=== PATIENT | male | born 1940 | race Caucasian/White ===

== ENCOUNTER → 2016-12-13 | Outpatient (CLI) | payer OTHER, MEDICARE | LOC: BHFA 11:30 | PROVIDERS: ATTEND Internal Medicine Cardiovascular Disease | DX: I42.9 Cardiomyopathy, unspecified (principal) ==

== ENCOUNTER 2017-02-05 07:28 | Day surgery (SDC) | payer OTHER, MEDICARE ==
[2017-02-05] MEDS ORDERED: MIDAZOLAM 2 MG/2 ML VIAL IVP ONE (07:34)
[2017-02-05] MEDS ORDERED: NS 1,000 ML IV ONE (07:34)
[2017-02-05] MEDS ORDERED: fentaNYL 100 MCG/2 ML INJ IVP ONE (07:34)
[2017-02-05] MEDS ORDERED: BENZOCAINE UNIT DOSE SPRAY HURRICAINE MM ONE (07:34)
[2017-02-05] MEDS ORDERED: PROPOFOL 200 MG/20 ML VIAL ONE ×2 (10:42→10:59)
== END 2017-02-05 12:40 | disposition home or self-care (01) ==
LOC: FCATH 07:28
PROVIDERS: ATTEND Internal Medicine Cardiovascular Disease
PROC: B245ZZ4 Ultrasonography of Left Heart, Transesophageal (ICD-10-PCS; principal; 2017-02-05)
DX: I34.0 Nonrheumatic mitral (valve) insufficiency (principal); I50.9 Heart failure, unspecified
CPT/HCPCS: J2704

== ENCOUNTER → 2017-02-08 | Outpatient (CLI) | payer OTHER, MEDICARE | LOC: BHFA 09:00 | PROVIDERS: ATTEND Internal Medicine Cardiovascular Disease | DX: I48.91 Unspecified atrial fibrillation (principal); J98.4 Other disorders of lung ==

== ENCOUNTER → 2017-02-26 | Outpatient (CLI) | payer OTHER, MEDICARE | LOC: BHFA 08:45 | PROVIDERS: ATTEND Internal Medicine Cardiovascular Disease | DX: I34.0 Nonrheumatic mitral (valve) insufficiency (principal); I50.22 Chronic systolic (congestive) heart failure; E66.9 Obesity, unspecified; R06.02 Shortness of breath ==

== ENCOUNTER 2017-04-02 16:40 | Inpatient (IN) | payer OTHER, MEDICARE ==
[2017-04-02] MEDS ORDERED: NS 1,000 ML IV ONE (16:56)
--- NOTE | 2017-04-02 16:57 | EDPHY ---
H & P Stated Complaint: Sent to ED for abnl chemistries HPI/ROS: HPI CHIEF COMPLAINT: Abnormal labs HISTORY OF PRESENT ILLNESS: This patient very pleasant 76-year-old male significant past medical history for nonischemic cardiomyopathy, last ejection fraction 30%, AICD, who presents emergency room after he had lab work that showed an abnormal chemistry and hyperkalemia to 6. Also concern for renal failure. He is referred to the emergency room. Dr. Tian did specifically call about this patient. He also sees Dr. David Avendaño. Patient tells me over the last 3 weeks he has had no medication changes he was started on lisinopril as well as spironolactone as well as he thinks Turosemide. Patient states he has no chest pain or shortness of breath he states that his peripheral edema has improved. He does tell me over the last 3 weeks he has noticed these medications that he gets lightheaded very easily and sometimes gets into a fog. Currently upon arrival to the emergency room he is hemodynamically stable had routine blood work by Dr. Avendaño today and was referred to the emergency room due to hyperkalemia, elevated BUN and creatinine. Patient denies any complaints at this time. He does also tell me that he took he thinks KayExelate prior to arrival. Past Medical History: Nonischemic cardiomyopathy, AICD, reduced ejection fraction, history VFib V-tach Past Surgical History: AICD Social History: He practices law, denies daily use of drugs alcohol tobacco products Family History: Noncontributory ROS REVIEW OF SYSTEMS: A comprehensive 10 point review of systems is otherwise negative aside from elements mentioned in the history of present illness. Exam Constitutional appears well triage nursing summary reviewed, vital signs reviewed, awake/alert. Eyes normal conjunctivae and sclera, EOMI, PERRLA. HENT normal inspection, atraumatic, moist mucus membranes, no epistaxis, neck supple/ no meningismus, no raccoon eyes. Respiratory clear to auscultation bilaterally, normal breath sounds, no respiratory distress, no wheezing. Cardiovascular rate normal, regular rhythm, no murmur, no edema, distal pulses normal. Gastrointestinal soft, non-tender, no rebound, no guarding, normal bowel sounds, no distension, no pulsatile mass. Genitourinary no CVA tenderness. Musculoskeletal no midline vertebral tenderness, full range of motion, no calf swelling, no tenderness of extremities, no meningismus, good pulses, neurovascularly intact. Skin pink, warm, & dry, no rash, skin atraumatic. Neurologic awake, alert and oriented x 3, AAOx3, moves all 4 extremities equally, motor intact, sensory intact, CN II-XII intact, normal cerebellar, normal vision, normal speech. Psychiatric normal mood/affect. Heme/Lymph/Immune no lymphadenopathy. Differential Diagnosis: includes but is not limited to in a particular order renal failure, electrolyte disturbance, hyperkalemia, life-threatening hyperkalemia, cardiac arrhythmia, renal failure from lisinopril and diuretics Medical Decision Making: Plan for this patient full monitoring specialist, EKG due to hyperkalemia, repeat electrolytes, hydrate with IV fluids 1 L normal saline, and admit to the hospital. Will consult Cardiology. Would recommend holding lisinopril and diuretics at this time. Re-evaluation: EKG interpretation by me on record in [employer] system. Impression time of EKG 1724, this is AV dual paced rhythm EKG. I do not appreciate any abnormal acute ischemic changes. 183: Blood work reviewed. K down 5.5. BUN and creatinine noted be elevated. Patient hemodynamically stable agrees for admission. I will notify cardiology of his admission. Hospitalist service accepts. Dr. Martinez Most likely cause of acute kidney injury is lisinopril, potassium-sparing diuretic. Patient given 1 L fluid here in the emergency room.. Source: Patient - Personal History Current Tetanus Diphtheria and Acellular Pertussis (TDAP): Yes - Medical/Surgical History Hx Asthma: No Hx Chronic Respiratory Disease: Yes Hx Diabetes: No Hx Cardiac Disease: Yes Hx Renal Disease: No Hx Cirrhosis: No Hx Alcoholism: No Hx HIV/AIDS: No Hx Splenectomy or Spleen Trauma: No Other PMH: A fib. non ischemic cardiomyopathy. V-Tach. Bi-pacer. DVT. 2x PE's. - Social History Smoking Status: Former smoker Constitutional: Initial Vital Signs Temperature (C) 36.7 C 04/02/17 16:45 Heart Rate 78 04/02/17 16:45 Respiratory Rate 18 04/02/17 16:45 Blood Pressure 106/63 04/02/17 16:45 O2 Sat (%) 98 04/02/17 16:45 O2 Delivery Mode Room Air Allergies/Adverse Reactions: No Known Allergies Allergy (Unverified 10/25/09 16:20) Home Medications: Medication Instructions Recorded Amiodarone HCl [Pacerone (*)] 200 mg PO DAILY 12/29/14 Aspirin [Aspirin 81mg (*)] 81 mg PO DAILY 12/29/14 Atorvastatin Calcium [Lipitor 80 80 mg PO DAILY 12/29/14 mg] Carvedilol [Coreg] 12.5 mg PO BIDMEAL 12/29/14 Warfarin Sodium [Coumadin 2.5MG 1.25 mg PO MOFR@16 12/29/14 (*)] Warfarin Sodium [Coumadin 2.5MG 2.5 mg PO DAILY 12/29/14 (*)] 2 New Diuretics X 2 Weeks 04/02/17 Lisinopril [Zestril 20 mg (*)] 20 mg PO 04/02/17 Medical Decision Making - Data Points Laboratory Results: Laboratory Results 04/02/17 17:15 04/02/17 17:15 04/02/17 04/02/17 17:15 17:15 WBC 7.66 10^3/uL 10^3/uL (3.80-9.50) RBC 4.32 10^6/uL L 10^6/uL (4.40-6.38) Hgb 14.9 g/dL g/dL (13.7-17.5) Hct 43.5 % % (40.0-51.0) MCV 100.7 fL H fL (81.5-99.8) MCH 34.5 pg H pg (27.9-34.1) MCHC 34.3 g/dL g/dL (32.4-36.7) RDW 12.4 % % (11.5-15.2) Plt Count 180 10^3/uL 10^3/uL (150-400) MPV 10.2 fL fL (8.7-11.7) Neut % (Auto) 66.3 % % (39.3-74.2) Lymph % (Auto) 19.5 % % (15.0-45.0) [place] % (Auto) 11.0 % % (4.5-13.0) Eos % (Auto) 2.3 % % (0.6-7.6) Baso % (Auto) 0.4 % % (0.3-1.7) Nucleat RBC Rel Count 0.0 % % (0.0-0.2) Absolute Neuts (auto) 5.08 10^3/uL 10^3/uL (1.70-6.50) Absolute Lymphs (auto) 1.49 10^3/uL 10^3/uL (1.00-3.00) Absolute Monos (auto) 0.84 10^3/uL H 10^3/uL (0.30-0.80) Absolute Eos (auto) 0.18 10^3/uL 10^3/uL (0.03-0.40) Absolute Basos (auto) 0.03 10^3/uL 10^3/uL (0.02-0.10) Absolute Nucleated RBC 0.00 10^3/uL 10^3/uL (0-0.01) Immature Gran % 0.5 % % (0.0-1.1) Immature Gran # 0.04 10^3/uL 10^3/uL (0.00-0.10) Sodium 135 mEq/L mEq/L (134-144) Potassium 5.5 mEq/L H mEq/L (3.5-5.2) Chloride 101 mEq/L mEq/L (97-110) Carbon Dioxide 21 mEq/l L mEq/l (22-31) Anion Gap 13 mEq/L mEq/L (8-16) BUN 74 mg/dL H mg/dL (7-23) Creatinine 3.0 mg/dL H mg/dL (0.7-1.3) Estimated GFR 21 Glucose 129 mg/dL H mg/dL (70-100) Calcium 10.3 mg/dL mg/dL (8.5-10.4) Magnesium 2.2 mg/dL mg/dL (1.6-2.3) Total Bilirubin 1.4 mg/dL mg/dL (0.1-1.4) Conjugated Bilirubin 0.6 mg/dL H mg/dL (0.0-0.5) Unconjugated Bilirubin 0.8 mg/dL mg/dL (0.0-1.1) AST 39 IU/L IU/L (17-59) ALT 48 IU/L IU/L (21-72) Alkaline Phosphatase 88 IU/L IU/L (38-126) Creatine Kinase 49 IU/L IU/L (0-224) CK-MB (CK-2) Fraction Pending Troponin I Pending NT-Pro-B Natriuret Pep Pending Total Protein 7.3 g/dL g/dL (6.3-8.2) Albumin 4.5 g/dL g/dL (3.5-5.0) Medications Given: Discontinued Medications Sodium Chloride (Ns) 1,000 mls @ 0 mls/hr IV ONCE ONE PRN Reason: Wide Open Stop: 04/02/17 16:57 Last Admin: 04/02/17 17:30 Dose: 1,000 mls Departure - Departure Disposition: [facility] Inpatient Acute Clinical Impression: Hyperkalemia, KULWANT (acute kidney injury) Condition: Fair
[2017-04-02 17:27] LABS: % IMMATURE GRANULYOCYTES 0.5 % (0.0-1.1); ABSOLUTE IMMATURE GRANULOCYTES 0.04 10^3/uL (0.00-0.10); ADD DIFF? NO; ADD MORPH? NO; ADD SCAN? NO; ATYPICAL LYMPHOCYTE FLAG 10 (0-99); FRAGMENT RBC FLAG 0 (0-99); HEMATOCRIT 43.5 % (40.0-51.0); HEMOGLOBIN 14.9 g/dL (13.7-17.5); LEFT SHIFT FLG 0 (0-99); LIPEMIA HEMOLYSIS FLAG 90 (0-99); MEAN CELL HEMOGLOBIN 34.5 pg (27.9-34.1); MEAN CELL HEMOGLOBIN CONCENTR. 34.3 g/dL (32.4-36.7); MEAN CELL VOLUME 100.7 fL (81.5-99.8); MEAN PLATELET VOLUME 10.2 fL (8.7-11.7); PLATELET CLUMPS FLAG 0 (0-99); PLATELET COUNT 180 10^3/uL (150-400); RED BLOOD CELL COUNT 4.32 10^6/uL (4.40-6.38); RED CELL DISTRIBUTION WIDTH 12.4 % (11.5-15.2)
--- NOTE | 2017-04-02 17:27 | CPEKG ---
Heart Rate: 71 RR Interval: 845 P-R Interval: 124 QRSD Interval: 154 QT Interval: 448 QTC Interval: 487 P [place]: -18 QRS [place]: -80 T Wave [place]: 83 EKG Severity - ABNORMAL ECG - EKG Impression: A-V DUAL-PACED RHYTHM WITH SOME INHIBITION Electronically Signed By: Tony Juarez 02-Apr-2017 23:54:37
[2017-04-02 18:08] LABS: ALANINE AMINOTRANSFERASE 48 IU/L (21-72); ALBUMIN 4.5 g/dL (3.5-5.0); ALKALINE PHOSPHATASE 88 IU/L (38-126); ANION GAP 13 mEq/L (8-16); ASPARTATE AMINOTRANSFERASE 39 IU/L (17-59); BILIRUBIN,TOTAL 1.4 mg/dL (0.1-1.4); BILIRUBIN-CONJUGATED 0.6 mg/dL (0.0-0.5); BILIRUBIN-UNCONJUGATED 0.8 mg/dL (0.0-1.1); CALCIUM 10.3 mg/dL (8.5-10.4); CARBON DIOXIDE 21 mEq/l (22-31); CHLORIDE 101 mEq/L (97-110); GLOMERULAR FILTRATION RATE 21; GLUCOSE 129 mg/dL (70-100); MAGNESIUM 2.2 mg/dL (1.6-2.3); POTASSIUM 5.5 mEq/L (3.5-5.2); SODIUM 135 mEq/L (134-144); TOTAL PROTEIN 7.3 g/dL (6.3-8.2)
[2017-04-02 18:49] LABS: CREATINE KINASE-MB FRACTION 2.11 ng/mL (0-3.19)
[2017-04-02] MEDS ORDERED: ACETAMINOPHEN 325 MG TAB PO PRN (19:48)
[2017-04-02] MEDS ORDERED: ONDANSETRON DISINTEGRATING 4 MG TAB PO PRN (19:48)
[2017-04-02] MEDS ORDERED: ONDANSETRON 4 MG/2 ML VIAL IVP PRN (19:48)
[2017-04-02] MEDS ORDERED: NS 1,000 ML IV SCH (20:00)
--- NOTE | 2017-04-02 20:27 | GHP ---
[f rep st] HISTORY AND PHYSICAL DATE OF ADMISSION: 04/02/2017 CHIEF COMPLAINT: Abnormal labs. HISTORY OF PRESENT ILLNESS: This is a 76-year-old male with a history of a nonischemic cardiomyopat hy, atrial fibrillation, and ventricular tachycardia, status post AICD and pacemaker placement. Awilda arently early this year, discovered that he was having mitral regurgitation on routine echo. This w as further evaluated by RONAN. He then went to the [facility] where they further evaluate that. At that time then he was started on lisinopril and then after he came back from [facility], he was sta rted on torsemide and spironolactone. He says since then he has been feeling lightheaded. He did h ave some mild edema prior to that and that has now resolved. He has also had a little bit of neck p ain. No chest pain. No heart palpitations. He was not feeling well with fatigue and dizziness, an d labs were drawn today which showed a potassium of 6.5 and creatinine of 2.8. He was sent to the e mergency department. The patient also states he received 30 g of Kayexalate that was prescribed by the staff midwife's office prior to coming to the emergency department. REVIEW OF SYSTEMS: A 10-point review of systems was obtained and other than stated, was negative. He denies any PND, orthopnea, and only mild edema prior to medication changes. PAST MEDICAL HISTORY: 1. Nonischemic cardiomyopathy. 2. History of pacemaker and AICD placement. 3. Mitral regurgitation. 4. History of pulmonary embolisms x2. MEDICATIONS: Include amiodarone, aspirin, atorvastatin, Coreg, lisinopril, Aldactone, Demadex, and warfarin. His last INR was 1.6. SOCIAL HISTORY: No smoking. 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 His son is a staff midwife in [facility] [employer]. FAMILY HISTORY: Reviewed and noncontributory. PHYSICAL EXAMINATION: VITAL SIGNS: Afebrile, blood pressure is 106/63, heart rate is 70, oxygen sa turation is 98% on room air. GENERAL: The patient is well-developed, no apparent distress. HEENT: Nonicteric sclerae. Extraocular muscles intact. Moist mucous membranes. NECK: Supple. No thyr omegaly. LUNGS: Good effort. Clear to auscultation bilaterally. CARDIOVASCULAR: Regular rate an d rhythm. No murmurs or gallops. ABDOMEN: Positive bowel sounds. Soft, nontender, nondistended. No hepatosplenomegaly. EXTREMITIES: No clubbing, cyanosis, or edema. There is a little bit of ch ronic venous stasis changes. NEUROLOGIC: Alert and oriented x3. Moving all 4 extremities equally. PSYCHIATRIC: Normal affect. LABORATORY DATA: Potassium was 5.5, and creatinine 2.0. BNP 649. CBC is essentially normal. EKG personally reviewed and interpreted shows paced rhythm. ASSESSMENT: This is a 76-year-old male presenting with acute renal failure and hyperkalemia. PLAN: 1. Hyperkalemia. The patient has already received a dose of Kayexalate. His potassium is going do wn. We will continue to monitor this while holding his lisinopril and Aldactone. 2. Acute renal failure, most likely due to a diuretic. Will give IV fluids and monitor for improve ment. If there is no significant improvement and then would get a renal ultrasound. 3. History of mitral regurgitation and nonischemic cardiomyopathy. The patient is not complaining of any dyspnea or CHF symptoms prior to diuretic usage. However, we will be mindful of this while w e hydrate the patient and try not to over hydrate him. 4. History of PE. Will check an INR tonight. If INR is less than 2, will cover with subcutaneous heparin while we wait for his INR to become therapeutic. CODE STATUS: Patient is a full code. ADMISSION: Patient will be admitted under observation status. Case was discussed with the ER physi rosemarie. Old records were reviewed and summarized in the HPI. /[id number]/MODL
[2017-04-02] MEDS: AMIODARONE HCL 200 MG TAB PO SCH (20:57)
[2017-04-03 04:46] LABS: INR 1.46 (0.83-1.16); PROTIME(PATIENT) 17.7 SEC (12.0-15.0)
[2017-04-03 05:15] LABS: ANION GAP 11 mEq/L (8-16); CALCIUM 9.2 mg/dL (8.5-10.4); CARBON DIOXIDE 23 mEq/l (22-31); CHLORIDE 104 mEq/L (97-110); CREATININE 2.6 mg/dL (0.7-1.3); GLOMERULAR FILTRATION RATE 24; GLUCOSE 86 mg/dL (70-100); POTASSIUM 4.8 mEq/L (3.5-5.2); SODIUM 138 mEq/L (134-144)
--- NOTE | 2017-04-03 09:04 | PDCARPN ---
Cardiology Progress Note Chief Complaint: Feels less lethargic/dizzy today Assessment/Plan: Assessment: 1. NICMP 2. Mod to severe MR 3. AFIb 4. VT 5. Prerenal azotemia related to over diuresis 6. Hyperkalemia Plan: -Hold diuretics, ACEI for now, will reintroduce slowly as outpatient -Got IV fluids x 12 hrs, will stop now and let him hydrate orally -INR is 1.46, not starting Lovenox due to renal dysfunction. -Ambulate with assist -Monitor renal fn in hospital, anticipate 2 more days in hospital. If doesn't improve, will consult nephrology -K is now normal 04/03/17 09:04 Subjective: Feels better than last night Objective: Vital Signs (8 Hrs) Temp Pulse Resp BP Pulse Ox 04/03/17 07:48 36.3 C 74 18 117/69 95 04/03/17 03:49 36.6 C 80 17 116/64 97 Intake/Output (24 Hrs) 04/01/17 04/02/17 04/03/17 11:59 11:59 11:59 Intake Total 1550 Output Total 850 Balance 700 Intake: Oral (ml) 350 IV Infused (ml) 1200 Ns 1,000 ml @ 100 mls/hr 1200 IV CONT LEXX Rx#: [id number] Output: Urine (ml) 850 Urinal 850 Other: Weight 109.4 kg Intake Quantity Yes Sufficient Number of Stools Urinal 1 Result Diagrams: 04/02/17 17:15 04/03/17 03:16 Telemetry: AF, PVC ICD10 Worksheet Patient Problems: Problems Problem Status Onset Pericardial effusion without cardiac tamponade Acute Pacemaker Acute Atrial fibrillation Acute Hyperkalemia Acute KULWANT (acute kidney injury) Acute
[2017-04-03] MEDS: ASPIRIN 81 MG CHEWABLE TAB PO SCH (09:41)
[2017-04-03] MEDS: CARVEDILOL 25 MG TAB PO SCH (09:41)
[2017-04-03] MEDS: AMIODARONE HCL 200 MG TAB PO SCH ×2 (09:41→20:28)
[2017-04-03] MEDS: ATORVASTATIN CALCIUM 40 MG TAB PO SCH (09:41)
[2017-04-03] MEDS: WARFARIN SODIUM 2.5 MG TAB PO SCH (16:06)
--- NOTE | 2017-04-03 16:14 | HOSPPROG ---
Hospitalist Progress Note Assessment/Plan: # renal failure, pre-renal d/t diuresis - improved, cont PO hydration, recheck tomorrow - hold diuretics, lisinopril - will involve renal if does not continue to improve # NICM - - AICD - cont coreg # hx a/fib, VT - amiodarone, coreg # hyperkalemia - resolved # hx PE - cont warfarin, INR low Subjective: feels well; urinating; slight dizziness Objective: Vital Signs Temp Pulse Resp BP Pulse Ox 36.7 C 73 18 97/64 L 96 04/03/17 15:32 04/03/17 15:32 04/03/17 15:32 04/03/17 15:32 04/03/17 15:32 Laboratory Results 04/03/17 03:16 04/02/17 04/03/17 04/04/17 05:59 05:59 05:59 Intake Total 1550 500 Output Total 850 Balance 700 500 PT 17.7 SEC (12.0-15.0) H 04/03/17 03:16 INR 1.46 (0.83-1.16) H 04/03/17 03:16 chart reviewed ECG personally reviewed - Physical Exam Constitutional: no apparent distress, appears nourished Cardiovascular: regular rate and rhythym, no murmur, rub, or gallop Respiratory: no respiratory distress, no rales or rhonchi, clear to auscultation Gastrointestinal: normoactive bowel sounds, soft, non-tender abdomen, no palpable masses ICD10 Worksheet Patient Problems: Problems Problem Status Onset Pericardial effusion without cardiac tamponade Acute Pacemaker Acute Atrial fibrillation Acute Hyperkalemia Acute KULWANT (acute kidney injury) Acute
[2017-04-03] MEDS: CARVEDILOL 6.25 MG TAB PO SCH (19:13)
[2017-04-04 04:56] LABS: INR 1.45 (0.83-1.16); PROTIME(PATIENT) 17.6 SEC (12.0-15.0)
[2017-04-04 05:02] LABS: ANION GAP 7 mEq/L (8-16); CALCIUM 9.3 mg/dL (8.5-10.4); CARBON DIOXIDE 24 mEq/l (22-31); CHLORIDE 107 mEq/L (97-110); CREATININE 1.6 mg/dL (0.7-1.3); GLOMERULAR FILTRATION RATE 42; GLUCOSE 82 mg/dL (70-100); SODIUM 138 mEq/L (134-144)
[2017-04-04] MEDS: ATORVASTATIN CALCIUM 40 MG TAB PO SCH (08:24)
[2017-04-04] MEDS: CARVEDILOL 25 MG TAB PO SCH (08:24)
[2017-04-04] MEDS: ASPIRIN 81 MG CHEWABLE TAB PO SCH (08:25)
[2017-04-04] MEDS ORDERED: WARFARIN SODIUM 5 MG TAB PO ONE (09:09)
--- NOTE | 2017-04-04 12:17 | PDCARPN ---
Cardiology Progress Note Assessment/Plan: Assessment: 1. NICMP 2. Mod to severe MR 3. AFIb 4. VT 5. Prerenal azotemia related to over diuresis 6. Hyperkalemia Plan: - improvement in renal function and potassium levels. Anticipate discharge home tomorrow. Will keep in the hospital today since his systolic blood pressure is 90 mm of mercury and he is complaining of dizziness. - Given additional dose of warfarin 5 mg today - will gradually reintroduce RAASi (ACEI/ARB) diuretics as outpatient, he will require much lower doses than usual 04/04/17 12:15 Subjective: feels well today, offers no complaints. Reviewed/Discussed With: family Time Spent With Patient: 15 minutes Objective: Vital Signs (8 Hrs) Temp Pulse Resp BP Pulse Ox 04/04/17 08:27 36.4 C 70 16 90/66 L 96 04/04/17 08:24 70 118/57 L 04/04/17 04:21 36.7 C 70 16 118/57 L 95 Intake/Output (24 Hrs) 04/03/17 04/04/17 04/05/17 11:59 11:59 11:59 Intake Total 750 Output Total 250 Balance 500 Intake: Oral (ml) 750 Output: Urine (ml) 250 Urinal 250 Other: Intake Quantity Yes Sufficient Number of Voids Toilet 1 Number of Stools Toilet 1 Result Diagrams: 04/02/17 17:15 04/04/17 03:43 Telemetry: V paced rhythm with frequent PVCs ICD10 Worksheet Patient Problems: Problems Problem Status Onset Pericardial effusion without cardiac tamponade Acute Pacemaker Acute Atrial fibrillation Acute Hyperkalemia Acute KULWANT (acute kidney injury) Acute
--- NOTE | 2017-04-04 12:33 | HOSPPROG ---
Hospitalist Progress Note Assessment/Plan: # renal failure, pre-renal d/t diuresis - continues to improve - hold diuretics, lisinopril # hypotension - improving with increased PO intake # NICM - - AICD - cont coreg # hx a/fib, VT - amiodarone, coreg # hyperkalemia - resolved # hx PE - cont warfarin, INR low - additional warfarin today Subjective: slightly dizzy Objective: Vital Signs Temp Pulse Resp BP Pulse Ox 36.4 C 70 16 90/66 L 96 04/04/17 08:27 04/04/17 08:27 04/04/17 08:27 04/04/17 08:27 04/04/17 08:27 Laboratory Results 04/04/17 03:43 04/03/17 04/04/17 04/05/17 05:59 05:59 05:59 Intake Total 750 Output Total 250 Balance 500 PT 17.6 SEC (12.0-15.0) H 04/04/17 03:43 INR 1.45 (0.83-1.16) H 04/04/17 03:43 - Physical Exam Constitutional: no apparent distress, appears nourished Cardiovascular: regular rate and rhythym, no murmur, rub, or gallop Respiratory: no respiratory distress, no rales or rhonchi, clear to auscultation Gastrointestinal: normoactive bowel sounds, soft, non-tender abdomen, no palpable masses ICD10 Worksheet Patient Problems: Problems Problem Status Onset Pericardial effusion without cardiac tamponade Acute Pacemaker Acute Atrial fibrillation Acute Hyperkalemia Acute KULWANT (acute kidney injury) Acute
[2017-04-04] MEDS: AMIODARONE HCL 200 MG TAB PO SCH ×2 (13:45→20:54)
[2017-04-04] MEDS: WARFARIN SODIUM 2.5 MG TAB PO SCH (17:55)
[2017-04-04] MEDS: CARVEDILOL 6.25 MG TAB PO SCH (17:56)
[2017-04-05 04:08] VITALS: PULSE 71; RESP 15
[2017-04-05 05:26] LABS: INR 1.57 (0.83-1.16); PROTIME(PATIENT) 18.8 SEC (12.0-15.0)
[2017-04-05 05:29] LABS: ANION GAP 7 mEq/L (8-16); CALCIUM 9.8 mg/dL (8.5-10.4); CARBON DIOXIDE 24 mEq/l (22-31); CHLORIDE 106 mEq/L (97-110); CREATININE 1.4 mg/dL (0.7-1.3); GLOMERULAR FILTRATION RATE 50; GLUCOSE 83 mg/dL (70-100); POTASSIUM 5.1 mEq/L (3.5-5.2); SODIUM 137 mEq/L (134-144)
[2017-04-05 07:21] VITALS: BP 105/62; TEMP 97.6; O2SAT 97
[2017-04-05] MEDS: ATORVASTATIN CALCIUM 40 MG TAB PO SCH (09:18)
[2017-04-05] MEDS: CARVEDILOL 25 MG TAB PO SCH (09:18)
[2017-04-05] MEDS: AMIODARONE HCL 200 MG TAB PO SCH (09:18)
[2017-04-05] MEDS: ASPIRIN 81 MG CHEWABLE TAB PO SCH (09:19)
[2017-04-05] MEDS ORDERED: WARFARIN SODIUM 5 MG TAB PO ONE (09:45)
--- NOTE | 2017-04-05 10:20 | GDS ---
[f rep st] DISCHARGE SUMMARY DIAGNOSES: 1. Renal failure, prerenal due to over diuresis. 2. Hypotension. 3. Nonischemic cardiomyopathy. 4. History of atrial fibrillation and ventricular tachycardia. 5. Hyperkalemia. 6. History of a PE with subtherapeutic INR. HOSPITAL COURSE: A 76-year-old man admitted with renal failure. Initial creatinine was 3.0. This is due to over diuresis. He had just been started on Demadex as well as Aldactone. He is also hype rkalemic. Renal failure is significantly improved with slight IV hydration and holding diuretics. His creatinine is 1.4 on discharge. He has been seen in consultation by Dr. Tian as well. He recomm ends restarting Lasix 20 mg daily tomorrow. He will see him once a week for the next 4 weeks. His appointment is for next Sunday. Also, has a history of PE. His INR is 1.46 on admission, it is 1.57 on the day of discharge. We wi ll give him an extra dose of warfarin as he got yesterday then start him on his home warfarin. Dr. Tian will also follow his INR as an outpatient. Nonischemic cardiomyopathy: Continue his carvedilol, hold RIAZ inhibitors for now. Lasix as above. For his history of atrial fibrillation and ventricular tachycardia, we will continue his amiodarone. /[id number]/MODL
[2017-04-05] MEDS ORDERED: WARFARIN SODIUM 2.5 MG TAB PO SCH (16:00)
== END 2017-04-05 10:54 | disposition home or self-care (01) | DRG 683 ==
LOC: INTOOBSV 18:05 → F2W 18:42 → OBSVTOIN 04-03 16:11
PROVIDERS: ADMIT Internal Medicine; ATTEND Student in an Organized Health Care Education/Training Program
DX: N17.9 Acute kidney failure, unspecified (principal); I42.9 Cardiomyopathy, unspecified; E87.5 Hyperkalemia; I95.9 Hypotension, unspecified; I48.91 Unspecified atrial fibrillation; I34.0 Nonrheumatic mitral (valve) insufficiency; Z79.01 Long term (current) use of anticoagulants; Z95.810 Presence of automatic (implantable) cardiac defibrillator; Z86.711 Personal history of pulmonary embolism; Z86.718 Personal history of other venous thrombosis and embolism
CPT/HCPCS: G0378

== ENCOUNTER → 2017-05-01 | Outpatient (CLI) | payer OTHER, MEDICARE | LOC: FIMAGING 14:33 → EDSTATUS 14:33 | PROVIDERS: ATTEND Internal Medicine Cardiovascular Disease | DX: I47.2 Ventricular tachycardia (principal); I48.91 Unspecified atrial fibrillation ==

== ENCOUNTER → 2017-05-01 | Outpatient (CLI) | payer OTHER, MEDICARE | LOC: BHFA 13:45 | PROVIDERS: ATTEND Internal Medicine Cardiovascular Disease | DX: I48.91 Unspecified atrial fibrillation (principal); I47.2 Ventricular tachycardia; Z95.810 Presence of automatic (implantable) cardiac defibrillator ==

== ENCOUNTER → 2017-05-09 | Outpatient (CLI) | payer OTHER, MEDICARE | LOC: BHFA 13:15 | PROVIDERS: ATTEND Internal Medicine Cardiovascular Disease | DX: I48.91 Unspecified atrial fibrillation (principal); I47.2 Ventricular tachycardia; I50.22 Chronic systolic (congestive) heart failure; I42.9 Cardiomyopathy, unspecified; Z95.810 Presence of automatic (implantable) cardiac defibrillator ==

== ENCOUNTER → 2018-05-23 | Outpatient (CLI) | payer OTHER, MEDICARE | LOC: FIMAGING 15:37 | PROVIDERS: ATTEND Internal Medicine Cardiovascular Disease | DX: I48.91 Unspecified atrial fibrillation (principal); Z95.810 Presence of automatic (implantable) cardiac defibrillator ==

== ENCOUNTER → 2018-10-08 | Outpatient (CLI) | payer OTHER, MEDICARE | LOC: FIMAGING 14:04 | PROVIDERS: ATTEND Internal Medicine | DX: M47.896 Other spondylosis, lumbar region (principal); M16.0 Bilateral primary osteoarthritis of hip ==

== ENCOUNTER → 2018-11-08 | Outpatient (CLI) | payer OTHER, MEDICARE | LOC: BHFA 15:15 | PROVIDERS: ATTEND Internal Medicine Cardiovascular Disease | DX: I42.9 Cardiomyopathy, unspecified (principal) ==